=== PATIENT | female | born 1955 | race Caucasian/White ===

== ENCOUNTER 2016-11-23 18:42 | Emergency (ER) | payer BC, OTHER ==
[2016-11-23] MEDS ORDERED: PHENAZOPYRIDINE HCL 100 MG TABLET PO ONE (19:06)
[2016-11-23] MEDS ORDERED: diphenhydrAMINE HCL 50 MG/ML VIAL IM ONE (19:06)
[2016-11-23 19:09] LABS: Urine Bilirubin Negative (NEGATIVE); Urine Blood 25 /ul (NEGATIVE); Urine Ketone Negative (NEGATIVE); Urine Nitrite Negative (NEGATIVE); Urine Protein Negative (NEGATIVE); Urine Specific Gravity 1.025 SP.GR. (1.005-1.010); Urine Urobilinogen Normal (NORMAL)
[2016-11-23] MEDS ORDERED: diphenhydrAMINE HCL 50 MG/ML VIAL ONE (19:09)
[2016-11-23] MEDS ORDERED: PHENAZOPYRIDINE HCL 100 MG TABLET ONE (19:09)
--- NOTE | 2016-11-23 19:20 | ERNOTE ---
ER Female HPI Date of Service: 11/23/16 Stated Complaint: UTI AND ALLERGIC REACTION TO SULFA Presenting Symptoms: dysuria Time Seen by Provider: 11/23/16 18:59 Source: patient Exam Limitations: no limitations Immunizations: IMMUNIZATION HX Immunizations Up to Date Yes History of Influenza Vaccine Yes Hx Pneumococcal Vaccination No Allergies/Adverse Reactions: Allergies Sulfa (Sulfonamide Antibiotics) Allergy (Verified 11/23/16 18:54) Home Medications: HOME MEDICATIONS Alendronate Sodium 08/19/16 [Last Taken Unknown] Calcium + D3 ER Tablet 08/19/16 [Last Taken Unknown] Meloxicam 08/19/16 [Last Taken Unknown] Vitamin B12 08/19/16 [Last Taken Unknown] Cephalexin Monohydrate [Keflex] 500 mg PO QID #40 cap 11/23/16 [Last Taken Unknown] - History of Present Illness Narrative: Pt. comes in with c/o dysuria for three hours. Pt. denies any SOB, CP, NVD, fever, but states that when she tried to treat the symptoms with Bactrim that she had from a previous UTI and noted that a half an hour later she became red and splotchy and developed hives and dizziness. Pt. states that those symptoms resolved after she took a cool bath but when she got dizzy she fell over in bed and hit her head on a drawer and scraped her forehead. Pt. denies any headache, or dizziness at this time or any vision changes. Review of Systems - Review of Systems Constitutional: Present: no symptoms reported. Absent: recent illness, fever, chills, weakness, fatigue, malaise EYE: Present: no symptoms reported ENT: Present: no symptoms reported Respiratory: Present: no symptoms reported. Absent: shortness of breath, cough , wheezing Cardiology: Present: no symptoms reported. Absent: chest pain, palpitations, edema Gastrointestinal/Abdominal: Present: no symptoms reported. Absent: nausea, vomiting, diarrhea Genitourinary: Present: frequency, dysuria. Absent: pain, hematuria, decreased urinary output, discharge Skin: Present: rash, other - abrasion R forehead Neurological: Present: dizziness/light-headedness - resolved at this time All Other Systems: All systems neg except as marked - Patient's Past Medical History Patient History - Medical: UTI'S Patient History - Cardiac/Respiratory: No pertinent hx Patient History - Cancer: No Hx of Cancer Patient History - Surgical Procedures: , Orthopedic Patient History - Other: None - Social History Living Situations: home Abuse History: No History of abuse Psych History: No pertinent hx Smoking Status: Never smoker Alcohol Use: occasionally Drug Use: none - Immunizations Immunizations Up to Date: Yes Hx Pneumococcal Vaccination: No History of Influenza Vaccine: Yes Physical Exam - Physical Exam General Appearance: Present: wd/wn, alert, no apparent distress Head Exam: Present: no evidence of injury, other - abrasion partial thickness closed R forehead Eye Exam: Normal inspection: bilateral, PERRL: bilateral, EOMI: bilateral Ears, Nose, Throat: Present: normal ENT inspection, normal pharynx Neck: Present: normal inspection, nontender Respiratory: Present: no respiratory distress, normal breath sounds, no accessory muscle use, chest nontender, lungs clear Cardiovascular/Chest: Present: regular rate, rhythm, no murmur, normal peripheral pulses Gastrointestinal/Abdominal: Present: normal bowel sounds, nondistended, soft, no organomegaly, tenderness - suprapubic Back Exam: Present: normal inspection Extremity Exam: Present: normal inspection Neurological Exam: Present: alert, oriented, normal mood/affect, no motor/ sensory deficits, validation analyst II-XII nml as tested, normal cerebellar test Skin Exam: Present: normal color, warm/dry. Absent: pallor, skin rash ED Progress - Results and Orders Patient's Lab Results:: I have reviewed the patient's lab results. - Vital Signs Patient's Vital Signs:: I have reviewed the patient's vital signs. Vital Signs: Vital Signs 11/23/16 18:47 Temperature 36.1 C L Pulse Rate 76 Respiratory 18 Rate Blood Pressure 131/87 O2 Sat by Pulse 96 Oximetry - Progress/Reassessment Chief Complaint: Genitourinary Problem Departure Clinical Impression: UTI (urinary tract infection) Qualifiers: Urinary tract infection type: acute cystitis Hematuria presence: with hematuria Qualified Code(s): N30.01 - Acute cystitis with hematuria Adverse reaction to sulfa antibiotic Qualifiers: Encounter type: initial encounter Qualified Code(s): T37.0X5A - Adverse effect of sulfonamides, initial encounter - Departure Disposition: Home self-care Condition: Good Instructions: Urinary Tract Infection, Adult, [id number] Additional Instructions: Please follow up with primary provider in 1-2 days and finish all antibiotics. Referrals: Madyson Engel MD [Primary Care Provider] - Prescriptions: Cephalexin Monohydrate [Keflex] 500 mg PO QID #40 cap
[2016-11-23 19:37] LABS: Urine Appearance Clear; Urine Color Yellow
[2016-11-23 19:38] LABS: Urine Bacteria None Seen; Urine RBC 0-5 /hpf (0-5); Urine WBC 0-5 /hpf (0-5)
[2016-11-23] MEDS ORDERED: CEPHALEXIN MONOHYDRATE 250 MG CAPSULE PO ONE (19:39)
[2016-11-23] MEDS ORDERED: CEPHALEXIN MONOHYDRATE 250 MG CAPSULE ONE (19:41)
[2016-11-23 19:58] VITALS: BP 134/85
== END 2016-11-23 20:04 | disposition home or self-care (01) ==
LOC: ER 18:42
DX: N30.01 Acute cystitis with hematuria (principal); T37.0X5A Adverse effect of sulfonamides, initial encounter; Z87.440 Personal history of urinary (tract) infections